=== PATIENT | female | born 2000 | race Caucasian/White ===

== ENCOUNTER 2020-09-29 03:51 | Inpatient (IN) | payer BC, OTHER ==
[~2020-09-29] VITALS: Ht 153.2 cm; Wt 81.0 kg
[2020-09-29] MEDS ORDERED: ONDANSETRON HCL 4 MG/2 ML VIAL IV ONE (04:15)
[2020-09-29] MEDS ORDERED: MORPHINE SULFATE 4 MG/ML SYR/VIAL IV ONE (04:15)
[2020-09-29] MEDS ORDERED: SODIUM CHLORIDE 0.9% 1,000 ML IV ONE ×2 (04:15)
[2020-09-29 04:28] LABS: Basophils # (auto) 0.1 10 ^3/uL (0-0.2); Basophils % (auto) 0.5 % (0.0-2.0); Eosinophils # (auto) 0 10 ^3/uL (0-0.8); Eosinophils % (auto) 0.2 % (0.0-7.0); Hematocrit 41.3 % (36.0-46.0); Hemoglobin 14.6 g/dL (12.2-16.2); Lymphocytes # (auto) 1.6 10 ^3/uL (0.4-5.4); Lymphocytes % (auto) 13.4 % (10.0-50.0); Mean Corpuscular Hgb Conc. 35.3 g/dL (32.0-36.0); Mean Corpuscular Volume 87.7 fL (80.0-100.0); Neutrophils # (auto) 9.4 10 ^3/uL (1.6-8.6); Neutrophils % (auto) 77.9 % (37.0-80.0); Nucleated Red Blood Cells % 0.1 %; Platelet Count (auto) 253 10^3/uL (140-450); Red Blood Cells 4.71 10^6/uL (4.0-5.20); Red Cell Distribution Width 12.3 % (11.8-14.3); White Blood Cell 12.1 10^3/uL (4.4-10.8)
[2020-09-29 04:46] LABS: Albumin 4.2 g/dL (3.4-5.0); BUN/Creatinine Ratio 12.3; Calcium 9.4 mg/dL (8.5-10.1); Potassium 3.5 mmol/L (3.5-5.1)
[2020-09-29 04:49] LABS: Bilirubin, Total 1.1 mg/dL (0.2-1.0); Total Protein 8.3 g/dL (6.4-8.2)
[2020-09-29 05:25] LABS: Urine Bacteria FEW /hpf (None Seen); Urine Blood Negative /uL (Negative); Urine Mucus FEW (None Seen); Urine Specific Gravity 1.032 (1.001-1.035); Urine WBC 4 /hpf (0 - 5)
[2020-09-29] MEDS ORDERED: metroNIDAZOLE 500MG/100ML 100 ML IV ONE (05:30)
[2020-09-29] MEDS ORDERED: cefTRIAXone 1GM/50ML D5W 50 ML IV ONE (05:30)
[2020-09-29] MEDS ORDERED: SODIUM CHLORIDE 0.9% 1,000 ML IV SCH (06:30)
[2020-09-29] MEDS: cefTRIAXone 1GM/50ML D5W 50 ML IV SCH (09:00)
[2020-09-29] MEDS: PANTOPRAZOLE 40 MG/10 ML VIAL INJ IV SCH (10:37)
[2020-09-29] MEDS: ONDANSETRON HCL 4 MG/2 ML VIAL IV PRN (12:05)
[2020-09-29] MEDS: MORPHINE SULFATE 4 MG/ML SYR/VIAL IV PRN (12:05)
[2020-09-29 12:30] VITALS: BP 132/58
[2020-09-29] MEDS: metroNIDAZOLE 500MG/100ML 100 ML IV SCH ×2 (13:47→21:27)
[2020-09-29] MEDS ORDERED: D5W/SOD CHLO 0.9% 1,000 ML IV SCH (15:45)
[2020-09-29 17:00] VITALS: BP 102/56
[2020-09-29 22:00] VITALS: BP 113/58
[2020-09-29] MEDS: LORazepam 2MG/ML-1ML VIAL IV PRN (22:20)
[2020-09-29] MEDS: D5W/SOD CHLO 0.9% 1,000 ML IV SCH (22:21)
[2020-09-30 05:27] VITALS: BP 119/61
[2020-09-30] MEDS: metroNIDAZOLE 500MG/100ML 100 ML IV SCH ×3 (05:35→21:25)
[2020-09-30 06:18] LABS: Basophils # (auto) 0 10 ^3/uL (0-0.2); Basophils % (auto) 0.3 % (0.0-2.0); Eosinophils # (auto) 0.1 10 ^3/uL (0-0.8); Hematocrit 35.8 % (36.0-46.0); Hemoglobin 12.9 g/dL (12.2-16.2); Lymphocytes # (auto) 1.7 10 ^3/uL (0.4-5.4); Lymphocytes % (auto) 24.4 % (10.0-50.0); Mean Corpuscular Hemoglobin 31.6 pg (28.0-32.0); Mean Corpuscular Hgb Conc. 36.1 g/dL (32.0-36.0); Mean Corpuscular Volume 87.4 fL (80.0-100.0); Monocytes # (auto) 0.6 10 ^3/uL (0-1.3); Monocytes % (auto) 8.9 % (0.0-12.0); Neutrophils # (auto) 4.6 10 ^3/uL (1.6-8.6); Neutrophils % (auto) 65.4 % (37.0-80.0); Nucleated Red Blood Cells % 0.1 %; Platelet Count (auto) 216 10^3/uL (140-450); Red Cell Distribution Width 12.2 % (11.8-14.3)
[2020-09-30 06:35] LABS: Albumin 3.4 g/dL (3.4-5.0); BUN/Creatinine Ratio 15.1; Calcium 8.5 mg/dL (8.5-10.1); Potassium 3.6 mmol/L (3.5-5.1)
[2020-09-30 06:38] LABS: Bilirubin, Total 0.7 mg/dL (0.2-1.0); Total Protein 6.9 g/dL (6.4-8.2)
[2020-09-30] MEDS: D5W/SOD CHLO 0.9% 1,000 ML IV SCH ×2 (08:15→18:15)
[2020-09-30 08:30] VITALS: BP 88/57
[2020-09-30] MEDS: PANTOPRAZOLE 40 MG/10 ML VIAL INJ IV SCH (09:03)
[2020-09-30] MEDS: cefTRIAXone 1GM/50ML D5W 50 ML IV SCH (09:03)
[2020-09-30] MEDS: ONDANSETRON HCL 4 MG/2 ML VIAL IV PRN ×3 (09:04→23:12)
[2020-09-30] MEDS ORDERED: SUCCINYLCHOLINE CHLORIDE 20 MG/ML 10ML VIAL IV ONE (12:24)
[2020-09-30] MEDS ORDERED: fentaNYL CITRATE 100 MCG/2 ML VL ONE ×2 (12:25→13:36)
[2020-09-30] MEDS ORDERED: MIDAZOLAM HCL 1MG/1ML-2 ML VIAL ONE ×2 (12:25→14:16)
[2020-09-30] MEDS ORDERED: ROCURONIUM 10MG/ML 10ML VIAL IV ONE (12:26)
[2020-09-30] MEDS ORDERED: ceFAZolin 1GM/50ML 50 ML IV ONE (12:27)
[2020-09-30 12:30] VITALS: BP 119/67
[2020-09-30] MEDS ORDERED: BUPIVACAINE 0.25% INJ 50ML VIAL ONE (12:31)
[2020-09-30] MEDS ORDERED: DexAMETHasone SOD PHOS 10MG/1ML VIAL INJ ONE (13:23)
[2020-09-30] MEDS ORDERED: ONDANSETRON HCL 4 MG/2 ML VIAL ONE (13:58)
[2020-09-30] MEDS ORDERED: MIDAZOLAM HCL 1MG/1ML-2 ML VIAL IV PRN (14:15)
[2020-09-30] MEDS ORDERED: HYDROmorphone HCL 2 MG/ML VL IV PRN (14:15)
[2020-09-30] MEDS ORDERED: ONDANSETRON HCL 4 MG/2 ML VIAL IV PRN (14:15)
[2020-09-30] MEDS: HYDROmorphone HCL 2 MG/ML VL IV PRN ×2 (14:20→14:45)
[2020-09-30 15:58] LABS: INR 1.15 (0.9-1.15)
[2020-09-30] MEDS: MORPHINE SULFATE 4 MG/ML SYR/VIAL IV PRN ×2 (16:13→23:12)
[2020-09-30 17:00] VITALS: BP 107/84
[2020-09-30 21:57] VITALS: BP 116/53
[2020-10-01] MEDS: LORazepam 2MG/ML-1ML VIAL IV PRN (02:20)
[2020-10-01] MEDS: D5W/SOD CHLO 0.9% 1,000 ML IV SCH ×2 (04:45→13:15)
[2020-10-01 05:00] VITALS: BP 112/69
[2020-10-01 05:19] LABS: Basophils # (auto) 0 10 ^3/uL (0-0.2); Basophils % (auto) 0.1 % (0.0-2.0); Eosinophils # (auto) 0 10 ^3/uL (0-0.8); Lymphocytes # (auto) 0.6 10 ^3/uL (0.4-5.4); Lymphocytes % (auto) 5.3 % (10.0-50.0); Mean Corpuscular Hemoglobin 30.8 pg (28.0-32.0); Mean Corpuscular Hgb Conc. 35.1 g/dL (32.0-36.0); Mean Corpuscular Volume 87.8 fL (80.0-100.0); Monocytes # (auto) 0.5 10 ^3/uL (0-1.3); Monocytes % (auto) 4.7 % (0.0-12.0); Neutrophils % (auto) 89.9 % (37.0-80.0); Nucleated Red Blood Cells % 0.1 %; Platelet Count (auto) 269 10^3/uL (140-450); Red Blood Cells 4.56 10^6/uL (4.0-5.20); Red Cell Distribution Width 12.1 % (11.8-14.3); White Blood Cell 11.1 10^3/uL (4.4-10.8)
[2020-10-01] MEDS: metroNIDAZOLE 500MG/100ML 100 ML IV SCH ×3 (05:26→22:00)
[2020-10-01 05:38] LABS: Albumin 3.8 g/dL (3.4-5.0); Calcium 9.1 mg/dL (8.5-10.1); Potassium 3.8 mmol/L (3.5-5.1)
[2020-10-01 05:43] LABS: BUN/Creatinine Ratio 10.9; Bilirubin, Total 0.5 mg/dL (0.2-1.0); Total Protein 7.9 g/dL (6.4-8.2)
[2020-10-01 08:41] VITALS: BP 97/59
[2020-10-01] MEDS: PANTOPRAZOLE 40 MG/10 ML VIAL INJ IV SCH (08:48)
[2020-10-01] MEDS: MORPHINE SULFATE 4 MG/ML SYR/VIAL IV PRN ×3 (08:49→22:45)
[2020-10-01] MEDS: ONDANSETRON HCL 4 MG/2 ML VIAL IV PRN ×3 (08:49→22:45)
[2020-10-01] MEDS: cefTRIAXone 1GM/50ML D5W 50 ML IV SCH (08:50)
[2020-10-01 12:41] VITALS: BP 109/64
[2020-10-01 16:32] VITALS: BP 113/54
[2020-10-01 22:00] VITALS: BP 100/63
[2020-10-02] MEDS: D5W/SOD CHLO 0.9% 1,000 ML IV SCH (03:33)
[2020-10-02] MEDS: MORPHINE SULFATE 4 MG/ML SYR/VIAL IV PRN (04:24)
[2020-10-02 05:00] VITALS: BP 116/68
[2020-10-02 05:37] LABS: Basophils # (auto) 0 10 ^3/uL (0-0.2); Basophils % (auto) 0.4 % (0.0-2.0); Eosinophils # (auto) 0 10 ^3/uL (0-0.8); Eosinophils % (auto) 0.3 % (0.0-7.0); Hematocrit 37.1 % (36.0-46.0); Hemoglobin 13.3 g/dL (12.2-16.2); Lymphocytes # (auto) 2.5 10 ^3/uL (0.4-5.4); Lymphocytes % (auto) 31.4 % (10.0-50.0); Mean Corpuscular Hemoglobin 31.4 pg (28.0-32.0); Mean Corpuscular Hgb Conc. 35.9 g/dL (32.0-36.0); Mean Corpuscular Volume 87.3 fL (80.0-100.0); Monocytes # (auto) 0.7 10 ^3/uL (0-1.3); Monocytes % (auto) 9.5 % (0.0-12.0); Neutrophils # (auto) 4.6 10 ^3/uL (1.6-8.6); Neutrophils % (auto) 58.4 % (37.0-80.0); Nucleated Red Blood Cells % 0.1 %; Platelet Count (auto) 269 10^3/uL (140-450); Red Blood Cells 4.25 10^6/uL (4.0-5.20); Red Cell Distribution Width 12.3 % (11.8-14.3); White Blood Cell 7.9 10^3/uL (4.4-10.8)
[2020-10-02] MEDS: metroNIDAZOLE 500MG/100ML 100 ML IV SCH ×2 (05:44→14:02)
[2020-10-02 05:52] LABS: Potassium 3.3 mmol/L (3.5-5.1)
[2020-10-02 06:02] LABS: Bilirubin, Total 0.6 mg/dL (0.2-1.0)
[2020-10-02] MEDS: ONDANSETRON HCL 4 MG/2 ML VIAL IV PRN (08:16)
[2020-10-02 09:15] VITALS: BP 105/60
[2020-10-02] MEDS: cefTRIAXone 1GM/50ML D5W 50 ML IV SCH (09:33)
[2020-10-02] MEDS: PANTOPRAZOLE 40 MG/10 ML VIAL INJ IV SCH (09:33)
[2020-10-02] MEDS ORDERED: GLYCOPYRROLATE 0.2 MG/ML 1ML VIAL IV ONE (12:26)
[2020-10-02] MEDS ORDERED: PROPOFOL 10 MG/ML 20 ML IV ONE (12:26)
[2020-10-02 13:00] VITALS: BP 103/60
[2020-10-02] MEDS ORDERED: POTASSIUM CHL 20 Meq TABLET PO ONE (15:15)
[2020-10-02 16:30] VITALS: BP 115/72
[2020-10-02] MEDS ORDERED: METR500T PO (16:34)
[2020-10-02] MEDS ORDERED: LEVO500T31 PO (16:34)
[2020-10-02 16:56] VITALS: BP 115/72
== END 2020-10-02 19:40 | disposition home or self-care (01) | DRG 854 ==
LOC: ER 03:51 → OVERFLOW 06:21 → WEST WING 10:10
PROVIDERS: ADMIT Nurse Practitioner; ATTEND Internal Medicine
PROC: 0DBH4ZZ Excision of Cecum, Percutaneous Endoscopic Approach (ICD-10-PCS; 2020-09-30)
PROC: 0DTJ4ZZ Resection of Appendix, Percutaneous Endoscopic Approach (ICD-10-PCS; principal; 2020-09-30 13:09)
DX: A41.9 Sepsis, unspecified organism (principal); K35.80 Unspecified acute appendicitis; E66.9 Obesity, unspecified; E87.6 Hypokalemia; Z20.822 Contact with and (suspected) exposure to COVID-19; K66.0 Peritoneal adhesions (postprocedural) (postinfection); Z83.3 Family history of diabetes mellitus; Z68.32 Body mass index [BMI] 32.0-32.9, adult
CPT/HCPCS: 36415; 74176; 76856; 80053; 81001; 81025; 82247; 83605; 83735; 84132; 85025; 85610; 87040; 87086; 87426; 96361; 96365; 96368; 96375; C9113; G0378; J0330; J0690; J0696; J1100; J2250; J2405; J2704; J3490; J7042

== ENCOUNTER 2020-10-05 10:23 | Inpatient (IN) | payer BC ==
[~2020-10-05] VITALS: Ht 170.2 cm; Wt 78.0 kg
[~2020-10-05 10:23] MED LIST: LEVO500T31 PO; METR500T PO
[2020-10-05] MEDS ORDERED: SODIUM CHLORIDE 0.9% 1,000 ML IVB ONE (10:30)
[2020-10-05] MEDS ORDERED: MORPHINE SULFATE 4 MG/ML SYR/VIAL IV ONE (10:30)
[2020-10-05] MEDS ORDERED: ONDANSETRON HCL 4 MG/2 ML VIAL IV ONE (10:30)
[2020-10-05 11:05] LABS: Basophils # (auto) 0 10 ^3/uL (0-0.2); Basophils % (auto) 0.4 % (0.0-2.0); Eosinophils # (auto) 0 10 ^3/uL (0-0.8); Eosinophils % (auto) 0.2 % (0.0-7.0); Hematocrit 46.9 % (36.0-46.0); Hemoglobin 16.9 g/dL (12.2-16.2); Lymphocytes # (auto) 0.9 10 ^3/uL (0.4-5.4); Lymphocytes % (auto) 9.3 % (10.0-50.0); Mean Corpuscular Hemoglobin 31.2 pg (28.0-32.0); Mean Corpuscular Hgb Conc. 36.1 g/dL (32.0-36.0); Mean Corpuscular Volume 86.5 fL (80.0-100.0); Monocytes # (auto) 0.5 10 ^3/uL (0-1.3); Monocytes % (auto) 4.7 % (0.0-12.0); Neutrophils # (auto) 8.4 10 ^3/uL (1.6-8.6); Neutrophils % (auto) 85.4 % (37.0-80.0); Nucleated Red Blood Cells % 0.2 %; Platelet Count (auto) 366 10^3/uL (140-450); Red Blood Cells 5.42 10^6/uL (4.0-5.20); Red Cell Distribution Width 12.3 % (11.8-14.3); White Blood Cell 9.8 10^3/uL (4.4-10.8)
[2020-10-05] MEDS ORDERED: IOHEXOL 300 MG/ML 100ML BOTTLE IJ ONE (11:05)
[2020-10-05 11:21] LABS: Albumin 4.4 g/dL (3.4-5.0); Calcium 9.8 mg/dL (8.5-10.1); Potassium 3.8 mmol/L (3.5-5.1)
[2020-10-05 11:31] LABS: BUN/Creatinine Ratio 10.6; Bilirubin, Total 0.8 mg/dL (0.2-1.0); Total Protein 8.9 g/dL (6.4-8.2)
[2020-10-05 11:35] LABS: Urine Bacteria NONE SEEN /hpf (None Seen); Urine Blood 3+ /uL (Negative); Urine Mucus FEW (None Seen); Urine Specific Gravity 1.032 (1.001-1.035)
[2020-10-05 11:40] LABS: Urine WBC 5 /hpf (0 - 5)
[2020-10-05] MEDS ORDERED: cefTRIAXone 1GM/50ML D5W 50 ML IV ONE (12:15)
[2020-10-05] MEDS ORDERED: NITROGLYCERIN 0.4 MG SL TAB SL PRN (13:30)
[2020-10-05] MEDS ORDERED: HYDROcodone-ACET 5/325MG TAB PO PRN (13:30)
[2020-10-05] MEDS ORDERED: MORPHINE SULF INJ 2 MG/ML SYRINGE 1ML IV PRN (13:30)
[2020-10-05] MEDS ORDERED: HYDROmorphone HCL 2 MG/ML VL IV PRN (13:30)
[2020-10-05] MEDS ORDERED: ONDANSETRON HCL 4 MG/2 ML VIAL IV PRN (13:30)
[2020-10-05] MEDS: D5W/SOD CHL 0.45% 1,000 ML IV SCH (14:35)
[2020-10-05] MEDS: MEROPENEM 1GM IVPB 100 ML IV SCH ×2 (14:53→21:40)
[2020-10-05 17:00] VITALS: BP 113/67
[2020-10-05 18:26] VITALS: BP 113/67
[2020-10-05] MEDS: PANTOPRAZOLE 40 MG/10 ML VIAL INJ IV SCH (21:53)
[2020-10-05 22:00] VITALS: BP 119/71
[2020-10-06] MEDS: D5W/SOD CHL 0.45% 1,000 ML IV SCH ×2 (02:50→16:10)
[2020-10-06 05:00] VITALS: BP 112/77
[2020-10-06] MEDS: MEROPENEM 1GM IVPB 100 ML IV SCH ×3 (05:28→23:33)
[2020-10-06 07:04] LABS: Basophils # (auto) 0 10 ^3/uL (0-0.2); Basophils % (auto) 0.5 % (0.0-2.0); Eosinophils # (auto) 0.1 10 ^3/uL (0-0.8); Eosinophils % (auto) 1.7 % (0.0-7.0); Hematocrit 39.8 % (36.0-46.0); Lymphocytes # (auto) 1.7 10 ^3/uL (0.4-5.4); Lymphocytes % (auto) 20.6 % (10.0-50.0); Mean Corpuscular Hemoglobin 30.7 pg (28.0-32.0); Mean Corpuscular Hgb Conc. 35.1 g/dL (32.0-36.0); Mean Corpuscular Volume 87.5 fL (80.0-100.0); Monocytes # (auto) 0.7 10 ^3/uL (0-1.3); Monocytes % (auto) 8.1 % (0.0-12.0); Neutrophils # (auto) 5.8 10 ^3/uL (1.6-8.6); Neutrophils % (auto) 69.1 % (37.0-80.0); Platelet Count (auto) 299 10^3/uL (140-450); Red Blood Cells 4.55 10^6/uL (4.0-5.20); Red Cell Distribution Width 12.6 % (11.8-14.3); White Blood Cell 8.4 10^3/uL (4.4-10.8)
[2020-10-06 07:15] LABS: Albumin 3.5 g/dL (3.4-5.0); Calcium 8.7 mg/dL (8.5-10.1)
[2020-10-06 07:21] LABS: BUN/Creatinine Ratio 13.2; Bilirubin, Total 0.8 mg/dL (0.2-1.0)
[2020-10-06 09:00] VITALS: BP 113/57
[2020-10-06] MEDS: PANTOPRAZOLE 40 MG/10 ML VIAL INJ IV SCH ×2 (09:44→23:05)
[2020-10-06 16:41] VITALS: BP 123/75
[2020-10-06 22:00] VITALS: BP 105/71
[2020-10-06] MEDS: MILK OF MAGNESIA 30ML SUSP PO SCH (22:00)
[2020-10-06] MEDS: DOCUSATE SOD 100 MG CAP PO SCH (22:00)
[2020-10-07 05:00] VITALS: BP 101/60
[2020-10-07] MEDS: D5W/SOD CHL 0.45% 1,000 ML IV SCH ×2 (05:30→18:42)
[2020-10-07] MEDS: MILK OF MAGNESIA 30ML SUSP PO SCH ×3 (06:00→22:00)
[2020-10-07] MEDS: MEROPENEM 1GM IVPB 100 ML IV SCH ×3 (06:01→21:17)
[2020-10-07 09:00] VITALS: BP_SYST 142; BP_SYST 92; BP_DIAS 46; BP_DIAS 62
[2020-10-07] MEDS: DOCUSATE SOD 100 MG CAP PO SCH ×2 (10:00→22:00)
[2020-10-07] MEDS: PANTOPRAZOLE 40 MG/10 ML VIAL INJ IV SCH ×2 (10:19→21:17)
[2020-10-07 13:00] VITALS: BP 108/56
[2020-10-07 16:56] VITALS: BP 119/73
[2020-10-07 22:00] VITALS: BP 119/77
[2020-10-08 05:00] VITALS: BP 108/60
[2020-10-08] MEDS: MEROPENEM 1GM IVPB 100 ML IV SCH (05:34)
[2020-10-08] MEDS: MILK OF MAGNESIA 30ML SUSP PO SCH (05:34)
[2020-10-08] MEDS: D5W/SOD CHL 0.45% 1,000 ML IV SCH (08:10)
[2020-10-08 09:00] VITALS: BP 102/63
[2020-10-08] MEDS: DOCUSATE SOD 100 MG CAP PO SCH (10:00)
[2020-10-08] MEDS: PANTOPRAZOLE 40 MG/10 ML VIAL INJ IV SCH (11:03)
== END 2020-10-08 11:35 | disposition home or self-care (01) | DRG 690 ==
LOC: ER 10:23 → OVERFLOW 13:27 → WEST WING 16:30
PROVIDERS: ADMIT Specialist; ATTEND Specialist
DX: N10 Acute pyelonephritis (principal); Z20.822 Contact with and (suspected) exposure to COVID-19; E86.0 Dehydration; K29.70 Gastritis, unspecified, without bleeding; K59.00 Constipation, unspecified; Z79.899 Other long term (current) drug therapy
CPT/HCPCS: 36415; 74177; 80053; 81001; 81025; 85025; 87040; 87081; 87086; 87088; 87426; 96365; 96375; C9113; G0378; J0696; J2185; J2405

== ENCOUNTER 2021-04-08 02:03 | Emergency (ER) | payer BC ==
[~2021-04-08] VITALS: Ht 167.6 cm; Wt 73.9 kg
[2021-04-08 02:04] VITALS: BP 131/78
[2021-04-08 02:48] LABS: Basophils # (auto) 0.1 10 ^3/uL (0-0.2); Eosinophils # (auto) 0.1 10 ^3/uL (0-0.8); Eosinophils % (auto) 0.8 % (0.0-7.0); Hematocrit 43.8 % (36.0-46.0); Lymphocytes # (auto) 1.8 10 ^3/uL (0.4-5.4); Lymphocytes % (auto) 19.5 % (10.0-50.0); Mean Corpuscular Hemoglobin 30.2 pg (28.0-32.0); Mean Corpuscular Hgb Conc. 34.2 g/dL (32.0-36.0); Mean Corpuscular Volume 88.3 fL (80.0-100.0); Monocytes # (auto) 0.7 10 ^3/uL (0-1.3); Monocytes % (auto) 7.1 % (0.0-12.0); Neutrophils # (auto) 6.6 10 ^3/uL (1.6-8.6); Neutrophils % (auto) 71.6 % (37.0-80.0); Red Blood Cells 4.96 10^6/uL (4.0-5.20); Red Cell Distribution Width 12.4 % (11.8-14.3); White Blood Cell 9.3 10^3/uL (4.4-10.8)
[2021-04-08 03:14] LABS: Albumin 4.1 g/dL (3.4-5.0); BUN/Creatinine Ratio 13.9; Calcium 9.3 mg/dL (8.5-10.1); Potassium 3.4 mmol/L (3.5-5.1)
[2021-04-08 03:17] LABS: Bilirubin, Total 0.7 mg/dL (0.2-1.0); Total Protein 7.8 g/dL (6.4-8.2)
[2021-04-08 05:14] LABS: Urine Bacteria FEW /hpf (None Seen); Urine Blood Negative /uL (Negative); Urine Mucus FEW (None Seen); Urine Specific Gravity 1.026 (1.001-1.035); Urine WBC 2 /hpf (0 - 5)
== END 2021-04-08 09:05 | disposition left against medical advice (07) ==
LOC: ER 02:04
DX: R11.2 Nausea with vomiting, unspecified (principal); R07.89 Other chest pain; Z53.21 Procedure and treatment not carried out due to patient leaving prior to being seen by health care provider
CPT/HCPCS: 36415; 80053; 81001; 81025; 85025; 93005

== ENCOUNTER 2022-05-13 02:25 | Emergency (ER) | payer SELFPAY ==
[~2022-05-13] VITALS: Ht 170.2 cm; Wt 83.2 kg
[2022-05-13] MEDS ORDERED: PRED20TA2 PO (03:56)
[2022-05-13] MEDS ORDERED: ALBU108A5 IN (03:56)
[2022-05-13] MEDS ORDERED: AZITTAB PO (03:56)
[2022-05-13] MEDS ORDERED: ACETAMINOPHEN 500 MG TAB PO ONE (04:00)
[2022-05-13] MEDS ORDERED: methylPREDNISolone SOD SUCC 125 MG/2 ML VL IM ONE (04:00)
[2022-05-13 05:16] VITALS: BP 138/72
== END 2022-05-13 05:55 | disposition home or self-care (01) ==
LOC: ER 02:25
DX: J06.9 Acute upper respiratory infection, unspecified (principal); Z90.49 Acquired absence of other specified parts of digestive tract; Z79.2 Long term (current) use of antibiotics; Z79.899 Other long term (current) drug therapy; Z20.822 Contact with and (suspected) exposure to COVID-19
CPT/HCPCS: 36415; 71045; 87070; 87426; 87804; 87880; 96372; 99284; J2930